=== PATIENT | female | born 1965 | race Two or more races ===

== ENCOUNTER 2023-06-14 18:12 | Inpatient (IN) | payer OTHER ==
[2023-06-14 19:09] VITALS: BMI 23.2
[2023-06-14] MEDS ORDERED: LOPERAMIDE HCL 2 MG CAPSULE PO PRN (21:57)
[2023-06-14] MEDS ORDERED: MAG HYDROX/AL HYDROX/SIMETH 30 ML UNIT-DOSE CUP PO PRN (21:57)
[2023-06-14] MEDS ORDERED: hydrOXYzine PAMOATE 25 MG CAPSULE (FP) PO PRN (21:57)
[2023-06-14] MEDS ORDERED: POLYETHYLENE GLYCOL (HEALTHYLAX) 3350 17 GM PACKET PO PRN (21:57)
[2023-06-14] MEDS ORDERED: NALOXONE HCL 0.4 MG/ML VIAL IM PRN (21:57)
[2023-06-14] MEDS ORDERED: BENZOCAINE/MENTHOL (CHLORASEPTIC ) LOZENGE MM PRN (21:57)
[2023-06-14] MEDS ORDERED: IBUPROFEN 400 MG TABLET (FP) PO PRN (21:57)
[2023-06-14] MEDS ORDERED: ONDANSETRON *ODT* 4 MG TABLET SL PRN (21:57)
[2023-06-14] MEDS ORDERED: BISMUTH SUBSALICYLATE 524 MG/30 ML PO PRN (21:57)
[2023-06-14] MEDS ORDERED: guaiFENesin 600 MG TABLET.ER (FP) PO PRN (21:57)
[2023-06-14] MEDS ORDERED: BENZONATATE 200 MG CAPSULE PO PRN (21:57)
[2023-06-14] MEDS ORDERED: MAGNESIUM HYDROX 2400MG/30ML ORAL SUSPENSION 30 ML CUP PO PRN (21:57)
[2023-06-14] MEDS ORDERED: IBUPROFEN 600 MG TABLET (FP) PO PRN (21:57)
[2023-06-14] MEDS ORDERED: ACETAMINOPHEN 325 MG TABLET (FP) PO PRN (21:57)
[2023-06-14] MEDS ORDERED: NALOXONE HCL (KLOXXADO) 8 MG SPRAY NS PRN (21:57)
[2023-06-14] MEDS ORDERED: DICYCLOMINE HCL 10 MG CAPSULE PO PRN (21:57)
[2023-06-14] MEDS ORDERED: LORazepam 1 MG TABLET PO PRN (22:03)
[2023-06-14] MEDS ORDERED: TRIMETHOBENZAMIDE HCL 200MG/2ML INJ IM ONE ×2 (22:12→23:14)
[2023-06-14] MEDS ORDERED: LORazepam 2 MG TABLET ONE (23:13)
[2023-06-14] MEDS: LORazepam 2 MG TABLET PO SCH (23:21)
[2023-06-15] MEDS: MELATONIN 5 MG TABLETS PO SCH ×2 (00:03→22:21)
[2023-06-15] MEDS: METHOCARBAMOL 500 MG TABLET PO PRN ×2 (00:03→20:32)
[2023-06-15] MEDS: THIAMINE HCL 100 MG TABLET (FP) PO SCH ×2 (00:03→22:21)
[2023-06-15] MEDS ORDERED: levETIRAcetam 500 MG TABLET (FP) PO ONE (01:08)
[2023-06-15] MEDS: LORazepam 2 MG TABLET PO SCH ×4 (05:31→22:21)
[2023-06-15] MEDS: PANTOPRAZOLE 40 MG TABLET PO SCH (07:07)
[2023-06-15] MEDS ORDERED: PATIENT'S OWN MEDICATION (NON-FORMULARY) (Levetiracetam [Levetiracetam] 1,000 MG Tablet) PO SCH (10:00)
[2023-06-15] MEDS: GABAPENTIN 400 MG CAPSULE PO SCH ×2 (10:26→22:20)
[2023-06-15] MEDS: levETIRAcetam 500 MG TABLET (FP) PO SCH ×2 (10:27→22:20)
[2023-06-15] MEDS: PRENATAL VITAMINS W/ FOLIC ACID TABLET (FP) PO SCH (10:27)
[2023-06-15] MEDS: BISACODYL 5 MG TABLET.DR (FP) PO SCH (10:30)
[2023-06-15] MEDS: ZONISAMIDE 100 MG CAPSULE PO SCH (10:30)
[2023-06-15 11:57] LABS: HEMATOCRIT 34.5 % (32.4-45.2); HEMOGLOBIN 11.8 GM/dL (10.7-15.3); MCH 32.8 pg (25.7-33.7); MCHC 34.2 g/dl (32.0-36.0); PLATELET COUNT 239 10^3/uL (134-434); RBC 3.59 M/mm3 (3.60-5.2); RDW 15.4 % (11.6-15.6); WHITE BLOOD COUNT 7.7 K/mm3 (4.0-10.0)
[2023-06-15 11:59] LABS: CHLORIDE 102 mmol/L (98-107); POTASSIUM 3.3 mmol/L (3.5-5.1); SODIUM 141 mmol/L (136-145)
[2023-06-15 12:10] LABS: ALBUMIN 2.8 g/dl (3.4-5.0); ANION GAP 10 MMOL/L (8-16); BLOOD UREA NITROGEN 3.7 mg/dL (7-18); CO2 30 mmol/L (21-32); GLUCOSE,RANDOM 83 mg/dL (74-106)
[2023-06-15 12:13] LABS: CREATININE 0.6 mg/dL (0.55-1.3); SGOT/AST 286 U/L (15-37); SGPT/ALT 156 U/L (13-61)
[2023-06-15 12:15] LABS: BILIRUBIN,TOTAL 0.8 mg/dL (0.2-1)
[2023-06-15 12:16] LABS: ALK PHOS 127 U/L (45-117)
[2023-06-15 12:17] LABS: CALCIUM 6.9 mg/dL (8.5-10.1)
[2023-06-15] MEDS ORDERED: POTASSIUM CHLORIDE ORAL LIQUID 20 MEQ/15 ML PO ONE (13:15)
[2023-06-15] MEDS: ATORVASTATIN CA 80 MG TABLET (FP) PO SCH (22:20)
[2023-06-15] MEDS: LEVOCETIRIZINE DIHYDROCHLORIDE PO SCH (22:21)
[2023-06-16] MEDS: LORazepam 1 MG TABLET PO SCH ×4 (05:30→22:52)
[2023-06-16] MEDS: PANTOPRAZOLE 40 MG TABLET PO SCH (05:59)
[2023-06-16] MEDS: BISACODYL 5 MG TABLET.DR (FP) PO SCH (10:15)
[2023-06-16] MEDS: ZONISAMIDE 100 MG CAPSULE PO SCH (10:16)
[2023-06-16] MEDS: PRENATAL VITAMINS W/ FOLIC ACID TABLET (FP) PO SCH (10:16)
[2023-06-16] MEDS: levETIRAcetam 500 MG TABLET (FP) PO SCH ×2 (10:16→22:52)
[2023-06-16] MEDS: GABAPENTIN 400 MG CAPSULE PO SCH ×2 (10:16→22:51)
[2023-06-16 10:53] LABS: POTASSIUM 3.3 mmol/L (3.5-5.1)
[2023-06-16 11:03] LABS: ALBUMIN 2.7 g/dl (3.4-5.0); BLOOD UREA NITROGEN 6.7 mg/dL (7-18); CALCIUM 7.3 mg/dL (8.5-10.1)
[2023-06-16 11:06] LABS: CREATININE 0.5 mg/dL (0.55-1.3)
[2023-06-16 11:08] LABS: TOT PROT 5.8 g/dl (6.4-8.2)
[2023-06-16] MEDS: POTASSIUM CHLORIDE ORAL LIQUID 20 MEQ/15 ML PO SCH ×2 (11:13→23:00)
[2023-06-16] MEDS: LACTULOSE 20 GM/30 ML UDC (FOR ORAL USE ONLY) PO SCH ×2 (13:29→22:51)
[2023-06-16] MEDS: ATORVASTATIN CA 80 MG TABLET (FP) PO SCH (22:51)
[2023-06-16] MEDS: MELATONIN 5 MG TABLETS PO SCH (22:51)
[2023-06-16] MEDS: LEVOCETIRIZINE DIHYDROCHLORIDE PO SCH (22:51)
[2023-06-16] MEDS: METHOCARBAMOL 500 MG TABLET PO PRN (22:52)
[2023-06-16] MEDS: THIAMINE HCL 100 MG TABLET (FP) PO SCH (22:52)
[2023-06-17] MEDS ORDERED: LORazepam 0.5 MG TABLET PO PRN
[2023-06-17] MEDS: LACTULOSE 20 GM/30 ML UDC (FOR ORAL USE ONLY) PO SCH ×3 (05:52→22:19)
[2023-06-17] MEDS: LORazepam 0.5 MG TABLET PO SCH ×4 (05:52→22:19)
[2023-06-17] MEDS: PANTOPRAZOLE 40 MG TABLET PO SCH (06:17)
[2023-06-17] MEDS: ZONISAMIDE 100 MG CAPSULE PO SCH (10:10)
[2023-06-17] MEDS: BISACODYL 5 MG TABLET.DR (FP) PO SCH (10:10)
[2023-06-17] MEDS: PRENATAL VITAMINS W/ FOLIC ACID TABLET (FP) PO SCH (10:10)
[2023-06-17] MEDS: levETIRAcetam 500 MG TABLET (FP) PO SCH ×2 (10:11→22:18)
[2023-06-17] MEDS: GABAPENTIN 400 MG CAPSULE PO SCH ×2 (10:11→22:18)
[2023-06-17] MEDS: METHOCARBAMOL 500 MG TABLET PO PRN (18:54)
[2023-06-17] MEDS: LEVOCETIRIZINE DIHYDROCHLORIDE PO SCH (22:18)
[2023-06-17] MEDS: ATORVASTATIN CA 80 MG TABLET (FP) PO SCH (22:18)
[2023-06-17] MEDS: MELATONIN 5 MG TABLETS PO SCH (22:19)
[2023-06-17] MEDS: THIAMINE HCL 100 MG TABLET (FP) PO SCH (22:19)
[2023-06-18] MEDS ORDERED: LORazepam 0.5 MG TABLET PO ONE (05:00)
[2023-06-18] MEDS: LACTULOSE 20 GM/30 ML UDC (FOR ORAL USE ONLY) PO SCH (05:49)
[2023-06-18] MEDS: PANTOPRAZOLE 40 MG TABLET PO SCH (06:35)
[2023-06-18 09:20] VITALS: BP 113/88; PULSE 72; RESP 18; TEMP 97.8
[2023-06-18] MEDS: ZONISAMIDE 100 MG CAPSULE PO SCH (10:02)
[2023-06-18] MEDS: PRENATAL VITAMINS W/ FOLIC ACID TABLET (FP) PO SCH (10:02)
[2023-06-18] MEDS: BISACODYL 5 MG TABLET.DR (FP) PO SCH (10:03)
[2023-06-18] MEDS: GABAPENTIN 400 MG CAPSULE PO SCH (10:03)
[2023-06-18] MEDS: levETIRAcetam 500 MG TABLET (FP) PO SCH (10:03)
== END 2023-06-18 01:05 | disposition home or self-care (01) | DRG 897 ==
LOC: YASAS 18:12 → Y3N 22:57
PROVIDERS: ADMIT Allergy & Immunology; ATTEND Surgery
PROC: HZ2ZZZZ Detoxification Services for Substance Abuse Treatment (ICD-10-PCS; principal; 2023-06-14)
DX: F10.230 Alcohol dependence with withdrawal, uncomplicated (principal); E72.20 Disorder of urea cycle metabolism, unspecified; F12.20 Cannabis dependence, uncomplicated; F41.9 Anxiety disorder, unspecified; F32.A Depression, unspecified; E87.6 Hypokalemia; G40.909 Epilepsy, unspecified, not intractable, without status epilepticus; Z87.891 Personal history of nicotine dependence; Z85.841 Personal history of malignant neoplasm of brain; Z28.310 Unvaccinated for COVID-19; Z28.9 Immunization not carried out for unspecified reason
CPT/HCPCS: 36415; 71046-TC-FY; 80053; 80177; 81025; 82140; 83735; 84132; 85027; 86780; 87635; 93005; 93010; Q0162